=== PATIENT | female | born 1935 | race Caucasian/White ===

== ENCOUNTER 2022-04-13 12:56 | Emergency (ER) | payer MEDICARE, BC ==
[2022-04-13 14:12] LABS: CHLORIDE,CL 102 mmol/L (98-107); SODIUM,NA 140 mmol/L (136-145)
[2022-04-13 14:14] LABS: ANION GAP 11.9 mmol/L (5-15); ESTIMATED GFR 61 mL/min (>=60)
[2022-04-13] MEDS ORDERED: NS with KCl 40mEq 1,000 ML IV SCH (14:30)
[2022-04-13] MEDS ORDERED: Iopamidol 612 MG/ML 100 ML Bottle IVPUSH ONE (14:30)
[2022-04-13 16:25] VITALS: BP 129/60; PULSE 58
[2022-04-13] MEDS ORDERED: Acetaminophen/HYDROcodone 325-5 MG Tab PO ONE (16:35)
[2022-04-13] MEDS ORDERED: Potassium Chloride 10 MEQ Tab.ER PO ONE (16:35)
[2022-04-13] MEDS ORDERED: Take Home: Acetaminophen/HYDROcodone 325-5 MG, 5 Tab Pack PO ONE ×2 (16:44→16:50)
[2022-04-13] MEDS: Take Home: Acetaminophen/oxyCODONE 325-5 MG, 5 Tab Pack PO ONE ×2 (16:45→17:13)
== END 2022-04-13 17:20 | disposition home or self-care (01) ==
LOC: VM.ED 12:56
DX: S22.42XA Multiple fractures of ribs, left side, initial encounter for closed fracture (principal); S27.2XXA Traumatic hemopneumothorax, initial encounter; Z88.5 Allergy status to narcotic agent; Z88.0 Allergy status to penicillin; Z91.030 Bee allergy status; Z88.8 Allergy status to other drugs, medicaments and biological substances; Z79.82 Long term (current) use of aspirin; Z79.899 Other long term (current) drug therapy; W19.XXXA Unspecified fall, initial encounter
CPT/HCPCS: 36415; 70450; 71101-LT; 71260; 80053; 82550; 83735; 85025; 86140; 96360; 96361; 99284; 99285-25; A9270-GY; J3480; Q9967

== ENCOUNTER 2022-09-26 11:19 | Emergency (ER) | payer OTHER, MEDICARE, BC ==
[2022-09-26 12:25] VITALS: BP 163/65; PULSE 83
== END 2022-09-26 11:55 ==
LOC: VM.ED 11:19
DX: S72.141A Displaced intertrochanteric fracture of right femur, initial encounter for closed fracture (principal); I10 Essential (primary) hypertension; I48.91 Unspecified atrial fibrillation; Z86.73 Personal history of transient ischemic attack (TIA), and cerebral infarction without residual deficits; Z79.899 Other long term (current) drug therapy; Z88.0 Allergy status to penicillin; Z88.5 Allergy status to narcotic agent; Z88.8 Allergy status to other drugs, medicaments and biological substances; Z91.030 Bee allergy status; W07.XXXA Fall from chair, initial encounter; Y92.129 Unspecified place in nursing home as the place of occurrence of the external cause
CPT/HCPCS: 99284